=== PATIENT | female | born 1975 | race American Indian/Alaskan Native ===

== ENCOUNTER 2019-12-19 09:14 | Emergency (ER) | payer SELFPAY ==
[2019-12-19 10:19] LABS: Basophils % (Auto) 0.7 % (0.0-1.8); Eosinophils # (Auto) 0.1 K/mm3 (0.0-0.4); Hematocrit 36.1 % (30.3-42.9); Lymphocytes # (Auto) 1.7 K/mm3 (1.2-5.4); Mean Corpuscular HGB Conc 33 % (30-34); Mean Corpuscular Volume 83 fl (79-97); Monocytes # (Auto) 0.5 K/mm3 (0.0-0.8); Monocytes % (Auto) 10.7 % (0.0-7.3); Platelet Count 173 K/mm3 (140-440); Red Blood Count 4.34 M/mm3 (3.65-5.03); Red Cell Distribution Width 14.5 % (13.2-15.2)
--- NOTE | 2019-12-19 12:26 | Emergency Department Report ---
ED HPI - General Chief complaint: Vaginal Bleeding Stated complaint: VAGINAL BLEEDING/6 WKS PREG Time Seen by Provider: 12/19/19 10:07 Source: patient, family Mode of arrival: Ambulatory Limitations: Language Barrier - History of Present Illness Initial comments: 44-year-old female with a past medical history of uterine fibroids, miscarriage 2, and 1 live with subsequent of a child presents with her fourth complaining of vaginal bleeding since last night. Patient estimates she is 6 weeks and recently came here from [facility] in October. She does not have a local [facility] and has not received any care for this . She complains of lower abdominal pain, vaginal bleeding with clots and has used 4 pads since last night. - Related Data Allergies Allergy/AdvReac Type Severity Reaction Status Date / Time No Known Allergies Allergy Unverified 12/19/19 09:15 ED Review of Systems ROS: Stated complaint: VAGINAL BLEEDING/6 WKS PREG Other details as noted in HPI Comment: All other systems reviewed and negative ED Past Medical Hx - Past Medical History Previous Medical History?: Yes Additional medical history: Vaginal delivery 3 years ago and child - Surgical History Past Surgical History?: Yes Additional Surgical History: x 2, Uterine fibroid surgery - Social History Smoking Status: Never Smoker Substance Use Type: None ED Physical Exam - General Limitations: Language Barrier - Other Other exam information: General: No limitations, patient is alert in no acute distress Head exam: Atraumatic, normocephalic Eyes exam: Normal appearance ENT: Moist mucous membrane Neck exam: Normal inspection, full range of motion, no meningismus nontender Respiratory exam: Clear to auscultation bilateral, no wheezes, rales, crackles Cardiovascular: Normal rate and rhythm, normal heart sounds Abdomen: Soft, nondistended, and nontender, with normal bowel sounds, no rebound, or guarding Extremity: Full range of motion normal inspection no deformity Back: Normal Inspection, full range of motion, no tenderness Neurologic: Alert, oriented x3, cranial nerves intact, no motor or sensory deficit Psychiatric: normal affect, normal mood Skin: Warm, dry, intact ED Course Vital Signs 12/19/19 12/19/19 09:16 10:22 Temperature 97.9 F 98.6 F Pulse Rate 92 H 68 Respiratory 18 20 Rate Blood Pressure 155/86 Blood Pressure 131/71 [Left] O2 Sat by Pulse 100 100 Oximetry - Consultations Consultation #1: 12/19/19 12:52 case d/w DR Jeronimo jaquez obgyn miscarriage expected rec f/u in office in 2 days for repeat quant ED Medical Decision Making - Lab Data Result diagrams: 12/19/19 10:06 Lab Results 12/19/19 12/19/19 12/19/19 Range/Units 10:06 10:06 10:06 WBC 4.9 (4.5-11.0) K/mm3 RBC 4.34 (3.65-5.03) M/mm3 Hgb 12.0 (10.1-14.3) gm/dl Hct 36.1 (30.3-42.9) % MCV 83 (79-97) fl MCH 28 (28-32) pg MCHC 33 (30-34) % RDW 14.5 (13.2-15.2) % Plt Count 173 (140-440) K/mm3 Lymph % (Auto) 34.0 (13.4-35.0) % Thomas % (Auto) 10.7 H (0.0-7.3) % Eos % (Auto) 1.0 (0.0-4.3) % Baso % (Auto) 0.7 (0.0-1.8) % Lymph # 1.7 (1.2-5.4) K/mm3 Thomas # 0.5 (0.0-0.8) K/mm3 Eos # 0.1 (0.0-0.4) K/mm3 Baso # 0.0 (0.0-0.1) K/mm3 Seg Neutrophils % 53.6 (40.0-70.0) % Seg Neutrophils # 2.6 (1.8-7.7) K/mm3 HCG, Quant 4578 H (0-4) mIU/mL Blood Type B NEGATIVE Antibody Screen Ord Rhogam Gestat Weeks WEEKS 12/19/19 Range/Units Unknown WBC (4.5-11.0) K/mm3 RBC (3.65-5.03) M/mm3 Hgb (10.1-14.3) gm/dl Hct (30.3-42.9) % MCV (79-97) fl MCH (28-32) pg MCHC (30-34) % RDW (13.2-15.2) % Plt Count (140-440) K/mm3 Lymph % (Auto) (13.4-35.0) % Thomas % (Auto) (0.0-7.3) % Eos % (Auto) (0.0-4.3) % Baso % (Auto) (0.0-1.8) % Lymph # (1.2-5.4) K/mm3 Thomas # (0.0-0.8) K/mm3 Eos # (0.0-0.4) K/mm3 Baso # (0.0-0.1) K/mm3 Seg Neutrophils % (40.0-70.0) % Seg Neutrophils # (1.8-7.7) K/mm3 HCG, Quant (0-4) mIU/mL Blood Type B NEGATIVE Antibody Screen Negative Ord Rhogam Gestat Weeks <11 WEEKS - Radiology Data Radiology results: report reviewed ULTRASOUND OBSTETRIC INDICATION / CLINICAL INFORMATION: vag bleeding, . Serum hCG level is 4578. Clinical Gestational Age (GA): Not provided TECHNIQUE: Transabdominal and Transvaginal. COMPARISON: None available. FINDINGS: No intrauterine gestational sac. Uterus appears enlarged measuring 10.9 x 6.0 x 7.0 cm. Endometrial stripe is upper normal measuring 15 mm in thickness. There are multiple hypoechoic/heterogeneous fibroids with the largest measuring 3 cm in the fundus. ADNEXA: Right ovary demonstrates no acute abnormality. Left ovary was not definitely visualized. FREE FLUID: None. ADDITIONAL FINDINGS: None. IMPRESSION: 1. No intrauterine identified. 2. No acute adnexal abnormality. 3. Enlarged uterus containing several fibroids. - Medical Decision Making case d/w DR Jeronimo copeland miscarriage expected rec f/u in office in 2 days for repeat quant ectopic precautions will be provided pt did receive rhogam - Differential Diagnosis miscarriage, threatened ab, ectopic Critical Care Time: No Critical care attestation.: If time is entered above; I have spent that time in minutes in the direct care of this critically ill patient, excluding procedure time. ED Disposition Clinical Impression: test positive, Threatened miscarriage, Need for rhogam due to Rh negative mother Disposition: DC-01 TO HOME OR SELFCARE Is pt being admited?: No Does the pt Need Aspirin: No Condition: Stable Instructions: Ectopic (ED), Threatened Miscarriage (ED), Rho(D) Immune Globulin (Injection) Additional Instructions: Take Tylenol as needed for pain. At this time it is unclear whether you are having a miscarriage or if you are having an ectopic . You have been provided discharge instructions for both diagnoses until this can be clarified. It is very important that you follow up on Saturday or Saturday, December 21 with [facility] for repeat testing to determine if you baby hormone level is increasing or decreasing. Call the office early Saturday morning and inform them your were seen in ER and the ER doctor spoke to Dr Kobi Jaquez who advised close office follow on Saturday (preferably) or Saturday. Please return to the ER if symptoms worsen as indicated by your discharge instructions. Referrals: KOBI JAQUEZ MD [Staff Physician] - 12/21/19 Time of Disposition: 14:10
--- NOTE | 2019-12-19 12:39 | Ultrasound Report ---
ULTRASOUND OBSTETRIC INDICATION / CLINICAL INFORMATION: vag bleeding, . Serum hCG level is 4578. Clinical Gestational Age (GA): Not provided TECHNIQUE: Transabdominal and Transvaginal. COMPARISON: None available. FINDINGS: No intrauterine gestational sac. Uterus appears enlarged measuring 10.9 x 6.0 x 7.0 cm. Endometrial s tripe is upper normal measuring 15 mm in thickness. There are multiple hypoechoic/heterogeneous fibro ids with the largest measuring 3 cm in the fundus. ADNEXA: Right ovary demonstrates no acute abnormality. Left ovary was not definitely visualized. FREE FLUID: None. ADDITIONAL FINDINGS: None. IMPRESSION: 1. No intrauterine identified. 2. No acute adnexal abnormality. 3. Enlarged uterus containing several fibroids. Signer Name: Chiki Corbin MD Signed: 12/19/2019 12:35 PM Workstation Name: [id number]
[2019-12-19 15:03] VITALS: BP 125/74
== END 2019-12-19 15:05 | disposition home or self-care (01) ==
LOC: ED 09:14
DX: O20.0 Threatened abortion (principal); Z3A.01 Less than 8 weeks gestation of pregnancy
CPT/HCPCS: 36415; 76801; 76817; 84702; 85025; 86850; 86900; 86901; 96372; 99284; J2790